=== PATIENT | female | born 1965 ===

== ENCOUNTER 2020-01-30 11:16 | Inpatient (IN) | payer BC ==
[2020-01-30] VITALS (298 sets, daily range): BP systolic 62–125; BP diastolic 30–71; PULSE 80–122; TEMP 34.8; O2SAT 92–100
[~2020-01-30] VITALS: Ht 170.2 cm; Wt 62.1 kg
[2020-01-30 11:54] LABS: HEMATOCRIT 31.5 % (37.0-47.0); MEAN CELL VOLUME 127 fl (80.0-100.0); MEAN CORPUSCULAR HEMOGLOBIN 32 pg (27.0-31.0); MEAN CORPUSCULAR HGB CONC 25 g/dl (33.0-37.0); PLATELET COUNT 715 K/mm3 (130-400); RED BLOOD COUNT 2.49 M/mm3 (4.10-5.30); REDCELL DISTRIBUTION WIDTH-CV 12.6 % (11.5-14.5)
[2020-01-30 12:02] LABS: ACETONE,SERUM MODERATE
[2020-01-30 12:05] LABS: ALANINE AMINOTRANSFERASE 34 U/L (4-34); ALBUMIN 3.3 gm/dL (3.5-5.0); ALKALINE PHOSPHATASE 211 U/L (50-136); AST,SGOT 35 U/L (15-37); BILIRUBIN,TOTAL 0.4 mg/dL (0.0-1.0); BLOOD UREA NITROGEN 59 mg/dL (7-17); CALCIUM 8.5 mg/dL (8.4-10.2); CREATININE, serum 3.66 (0.52-1.25); SODIUM 124 mmol/L (137-145)
[2020-01-30 12:07] LABS: ANION GAP 37 mmol/L (7-16)
[2020-01-30 12:17] LABS: CARBON DIOXIDE < 5 mmol/L (22-30); CHLORIDE 82 mmol/L (98-107); POTASSIUM 6.5 mmol/L (3.4-5.0)
[2020-01-30 12:28] LABS: GLUCOSE 1487 mg/dL (74-106)
[2020-01-30 12:31] LABS: ARTERIAL BLD GAS O2 SATURATION 97.9 % (92-100); ARTERIAL BLD GAS TCO2 CT 4.1; ARTERIAL BLOOD GAS BASE EXCESS -31.2 (-2-2); ARTERIAL BLOOD GAS HCO3 3.2 meq/L (22-26); ARTERIAL BLOOD GAS PCO2 26.1 mmHg (35-45)
[2020-01-30 12:32] LABS: ARTERIAL BLOOD GAS PO2 164.8 mmHg (80-100); ARTERIAL BLOOD GAS pH 6.71 (7.35-7.45)
[2020-01-30 13:25] LABS: BAND 3 % (0-10); LYMPHOCYTE 15 % (20.0-51.0); NEUTROPHILS 80 % (42.0-75.2); PLATELET ESTIMATE INCREASED (NORMAL)
--- NOTE | 2020-01-30 15:00 | NUR ---
Pt arrived to unit via stretcher from ED on Ventilator per RT. Propofol discontinued d/t hypotension and pt unresponsive. Seizure activity observed and 10mg of ativan given as well as Keppra and seizure activity stopped. Levophed titrated to maintain MAP >65. Insulin drip per protocol. Bath Steward consulted and declined central line insertion at this time. Mami hugger utilized to warm patient as well as fluid warmer. Head CT obtained. Urinalysis and DOA sent to lab.
[2020-01-30 15:01] LABS: ALCOHOL(ethanol),MEDICAL < 10 mg/dL
[2020-01-30 15:22] LABS: GLUCOSE 1305 mg/dL (74-106)
[2020-01-30 15:44] LABS: ARTERIAL BLD GAS O2 SATURATION 98.2 % (92-100); ARTERIAL BLD GAS TCO2 CT 5.1; ARTERIAL BLOOD GAS HCO3 4.6 meq/L (22-26)
[2020-01-30 15:45] LABS: ARTERIAL BLOOD GAS PCO2 19.3 mmHg (35-45); ARTERIAL BLOOD GAS pH 6.99 (7.35-7.45)
[2020-01-30 15:46] LABS: ARTERIAL BLOOD GAS PO2 146.4 mmHg (80-100)
[2020-01-30 15:47] LABS: IRON,SERUM 112 ug/dL (35-150)
[2020-01-30 15:56] LABS: TOTAL IRON BINDING CAPACITY 267 ug/dL (265-497)
[2020-01-30 16:07] LABS: MEAN CORPUSCULAR HGB CONC 28 g/dl (33.0-37.0); MEAN PLATELET VOLUME 11.3 fl (7.4-10.4); PLATELET COUNT 641 K/mm3 (130-400); RED BLOOD COUNT 2.62 M/mm3 (4.10-5.30); REDCELL DISTRIBUTION WIDTH-CV 12.6 % (11.5-14.5)
[2020-01-30 16:18] LABS: HEMATOCRIT 29.2 % (37.0-47.0); HEMOGLOBIN 8.1 g/dl (12.5-16.0); MEAN CELL VOLUME 112 fl (80.0-100.0); MEAN CORPUSCULAR HEMOGLOBIN 31 pg (27.0-31.0)
[2020-01-30 16:20] LABS: BLOOD UREA NITROGEN 55 mg/dL (7-17); CALCIUM 7.5 mg/dL (8.4-10.2); CHLORIDE 93 mmol/L (98-107); CREATININE, serum 2.86 (0.52-1.25); POTASSIUM 5.2 mmol/L (3.4-5.0); SODIUM 128 mmol/L (137-145)
[2020-01-30 16:28] LABS: GLUCOSE 1213 mg/dL (74-106)
[2020-01-30 17:25] LABS: BAND 3 % (0-10); LYMPHOCYTE 11 % (20.0-51.0); MYELOCYTE 2 % (0-0); NEUTROPHILS 86 % (42.0-75.2)
[2020-01-30 17:26] LABS: HYPOCHROMIA 3+; PLATELET ESTIMATE INCREASED (NORMAL)
[2020-01-30 17:56] LABS: ARTERIAL BLD GAS TCO2 CT 7.6; ARTERIAL BLOOD GAS BASE EXCESS -19.5 (-2-2)
[2020-01-30 17:57] LABS: ARTERIAL BLOOD GAS PCO2 19.2 mmHg (35-45); ARTERIAL BLOOD GAS pH 7.18 (7.35-7.45)
[2020-01-30 18:50] LABS: COLLECTION METHOD CATHETER
[2020-01-30 19:02] LABS: MUCOUS Present /lpf; PH 5 (5-8); SQUAMOUS EPITHELIAL 0-2 /hpf; URINE APPEARANCE Hazy; URINE BACTERIA None Seen /hpf; URINE BILIRUBIN Negative (NEGATIVE); URINE BLOOD 2+ (NEGATIVE); URINE COLOR Yellow; URINE GLUCOSE 3+ (NEGATIVE); URINE KETONE 1+ (NEGATIVE); URINE LEUKOCYTE ESTERASE Negative (NEGATIVE); URINE NITRATE Negative (NEGATIVE); URINE PROTEIN(semi-quant) 1+ (NEGATIVE); URINE UROBILINOGEN Negative (NEGATIVE)
[2020-01-30 19:04] LABS: TRICYCLIC ANTIDEPRESS URINE NEGATIVE
--- NOTE | 2020-01-30 19:21 | NUR ---
Pt has remained unresponsive throughout the shift. No further seizure activity observed. BP remained stable with levophed and fluids. Insulin drip protocol continues with lab to draw glucose. Pt has remained in sinus rhythm to sinus tach this evening. Dr. Yang in to see pt and rectal exam performed with no response from patient. Temperature back to normal and Mami Hugger discontinued. Pt continues on Vent per RT. No family contact available. Report to night RN.
[2020-01-30 20:29] LABS: CALCIUM 7.3 mg/dL (8.4-10.2); CREATININE, serum 2.47 (0.52-1.25); POTASSIUM 4.7 mmol/L (3.4-5.0)
[2020-01-31] VITALS (770 sets, daily range): BP systolic 113–139; BP diastolic 58–83; PULSE 83–105; TEMP 36; O2SAT 71–100
[2020-01-31 00:26] LABS: CALCIUM 7.6 mg/dL (8.4-10.2); CREATININE, serum 2.21 (0.52-1.25); POTASSIUM 4.2 mmol/L (3.4-5.0)
[2020-01-31 05:16] LABS: BASO % 0.3 % (0.0-2.0); EOS % 0.1 % (0-4.0); GRAN # 10.5 (1.4-6.5); LYMPH # 1.6 (1.2-3.4); LYMPH % 12.3 % (20.0-51.0); MEAN CORPUSCULAR HGB CONC 36 g/dl (33.0-37.0); MEAN PLATELET VOLUME 10.9 fl (7.4-10.4); MONO # 0.6 (0.1-0.6); MONO % 4.7 % (1.7-9.3); REDCELL DISTRIBUTION WIDTH-CV 12.2 % (11.5-14.5)
[2020-01-31 05:22] LABS: HEMOGLOBIN 7.9 g/dl (12.5-16.0); MEAN CORPUSCULAR HEMOGLOBIN 32 pg (27.0-31.0)
[2020-01-31 05:27] LABS: CALCIUM 7.5 mg/dL (8.4-10.2); CREATININE, serum 1.96 (0.52-1.25); MAGNESIUM 1.6 mg/dL (1.6-2.3); PHOSPHOROUS 2.7 mg/dL (2.5-4.5)
[2020-01-31 05:31] LABS: PLATELET COUNT 436 K/mm3 (130-400)
[2020-01-31 05:32] LABS: MEAN CELL VOLUME 88 fl (80.0-100.0)
[2020-01-31 05:55] LABS: ARTERIAL BLD GAS O2 SATURATION 98.5 % (92-100); ARTERIAL BLOOD GAS BASE EXCESS -0.6 (-2-2); ARTERIAL BLOOD GAS HCO3 21.2 meq/L (22-26); ARTERIAL BLOOD GAS PCO2 25.1 mmHg (35-45); ARTERIAL BLOOD GAS pH 7.55 (7.35-7.45)
[2020-01-31 05:56] LABS: ARTERIAL BLOOD GAS PO2 129.6 mmHg (80-100)
[2020-01-31 09:32] LABS: CALCIUM 7.3 mg/dL (8.4-10.2); CREATININE, serum 1.8 (0.52-1.25); POTASSIUM 3.3 mmol/L (3.4-5.0)
--- NOTE | 2020-01-31 10:45 | NUR ---
SEDATION OFF AT 0950 PER DOCTOR ROTHFLEISCH ORDER. PATIENT MADE NO EFFORT TO BREATHE OVER THE VENT. VS REMAINED WNL. PATIENT ONLLY WITHDREW FROM PAIN AFTER 45 MINUTES OF NO SEDATION. SEDATION RESUMED AT 1045
--- NOTE | 2020-01-31 11:51 | NUR ---
SW met with patient at her bedside to attempt intake assessment however patient could not tolerate interview. SW was present during provider rounds. Patient remains unresponsive. ANDREW did correspond with nurse who provided a POC Anabel [phone] as care suppor [facility] EMR. Patient is with no family here in the [place], her mother lives in [place] and does not speak guamanian. SW contacted [place] who reports that the patient lives alone, however has a roommate(college student) who had been living with her until the student returned home due to COVId crisis. Patient had recently been released from [facility] the previous , and had been cared for by a group of friends. Per POC patient had been independent of ADL's before her hospital stay and had been working at the [employer]. Patients PCM is Dr. Ulloa, and her OB is Dr. Holder. Patient gets her medications from [facility] with no complications. [place] informed this SW that she had provided EMS with a duffle bag that should have had patients discharge orders from her time at [facility], and she is attempting to locate medication. ANDREW informed nurse of duffle bag, and that I was going to attempt to contact [facility] to see what information they could provide. SW did contact [facility] main number and was transferred to Nicole, one of the charge nurses for the facility who transferred SW to [facility], where I was able to speak with Marisa. Marisa took down the fax number here and said she would fax what she could. ANDREW will forward information to patients nurse.
[2020-01-31] MEDS ORDERED: VIOKACE10 PO (11:55)
[2020-01-31] MEDS ORDERED: COREG 3.123.125 MG/T PO (11:56)
[2020-01-31] MEDS ORDERED: PRIL40 PO (11:56)
[2020-01-31] MEDS ORDERED: SODIUM BICARBO650 MG PO (11:57)
[2020-01-31] MEDS ORDERED: INSULIN AS100 UNIT/3 SQ (12:07)
[2020-01-31] MEDS ORDERED: LANTUS SOLOS100 U/ML SQ (12:08)
[2020-01-31] MEDS ORDERED: ASPIRIN 81M81 MG/TA2 PO (12:08)
[2020-01-31] MEDS ORDERED: FERROUSAL325 MG PO (12:09)
[2020-01-31] MEDS ORDERED: B-12 500 MCG PO (12:12)
[2020-01-31 13:50] LABS: CALCIUM 7.5 mg/dL (8.4-10.2); CREATININE, serum 1.75 (0.52-1.25); POTASSIUM 3.1 mmol/L (3.4-5.0)
[2020-01-31 15:52] LABS: PROCALCITONIN 9.52 ng/mL (0.00-0.09)
[2020-01-31 17:48] LABS: CALCIUM 7.6 mg/dL (8.4-10.2); CREATININE, serum 1.54 (0.52-1.25); POTASSIUM 3.5 mmol/L (3.4-5.0)
--- NOTE | 2020-01-31 18:33 | NUR ---
SEDATION VACAY INITIATED AT 1710. ALL FENTANYL, VERSED, VECURONIUM DECREASED IN HALF. PATIENT ABLE TO MOVE HEAD BUT DID NOT RESPOND TO VERBAL OR PAINFUL STIMULUS. SEDATION VACATION COMPLETED AT 1830. FENTANYL, VERSED AND VECURONIUM RATES CHANGED AND NOTED IN TITRATION DOCUMENTATION.
--- NOTE | 2020-01-31 19:05 | NUR ---
Bedside report received by Néstor. ETT, vent setting, OG placement and IV pump assessed at this time.
[2020-01-31 20:37] LABS: CALCIUM 7.8 mg/dL (8.4-10.2); CREATININE, serum 1.53 (0.52-1.25); POTASSIUM 3.8 mmol/L (3.4-5.0)
--- NOTE | 2020-01-31 21:00 | NUR ---
Pt assessment complete. Pt noted to open one eye to sound of name. Will squeeze left hand although not the right. With oral care a single tooth was noted to left upper jaw, as well as front set of bottom teeth intact. Tolerating the ventilator at this time.
--- NOTE | 2020-01-31 22:00 | NUR ---
Due to core temp being at 36.0, three warm blankets were placed on the patient underneath a bed sheet and brown top blanket. Room temperature was also raised in attempts to warm pt up.
--- NOTE | 2020-01-31 23:00 | NUR ---
Following IV gtts compatibility Insulin tubing moved from left AC to right AC peripheral IV's.
[2020-02-01] VITALS (858 sets, daily range): BP systolic 118–136; BP diastolic 72–86; PULSE 85–97; TEMP 36.4–36.7; O2SAT 92–100
[2020-02-01 00:43] LABS: CREATININE, serum 1.62 (0.52-1.25); POTASSIUM 3.4 mmol/L (3.4-5.0)
--- NOTE | 2020-02-01 03:00 | NUR ---
With linen change coccyx dressing changed. Stage 2 pressure ulcer noted with a small amount of drainage noted on dressing. Area pat with wet ph balanced wipe, allowed to dry before applying new Mepilex dressing in place. Surrounding open ulceration, red tissue is blanchable.
--- NOTE | 2020-02-01 04:00 | NUR ---
Ascultated lung sounds posteriorly when pt was turned for dressing change.
--- NOTE | 2020-02-01 04:00 | NUR ---
Pt temperature elevating slowly through out shift following nursing interventions.
--- NOTE | 2020-02-01 04:00 | NUR ---
PEG tube remains clamped at 11 through out entire shift.
[2020-02-01 04:38] LABS: BASO # 0.1 (0.0-0.2); BASO % 0.7 % (0.0-2.0); EOS # 0.2 (0.0-0.7); EOS % 1.6 % (0-4.0); GRAN # 8.7 (1.4-6.5); LYMPH # 2.6 (1.2-3.4); LYMPH % 21.3 % (20.0-51.0); MEAN CELL VOLUME 92 fl (80.0-100.0); MEAN CORPUSCULAR HGB CONC 36 g/dl (33.0-37.0); MEAN PLATELET VOLUME 10.7 fl (7.4-10.4); MONO # 0.6 (0.1-0.6); MONO % 4.9 % (1.7-9.3); PLATELET COUNT 404 K/mm3 (130-400); RED BLOOD COUNT 2.49 M/mm3 (4.10-5.30)
[2020-02-01 04:42] LABS: HEMATOCRIT 22.8 % (37.0-47.0); HEMOGLOBIN 8.2 g/dl (12.5-16.0); MEAN CORPUSCULAR HEMOGLOBIN 33 pg (27.0-31.0)
[2020-02-01 04:51] LABS: ALBUMIN 2.5 gm/dL (3.5-5.0); BILIRUBIN,TOTAL 0.2 mg/dL (0.0-1.0); CALCIUM 7.5 mg/dL (8.4-10.2); CREATININE, serum 1.42 (0.52-1.25); MAGNESIUM 1.6 mg/dL (1.6-2.3); PHOSPHOROUS 2.8 mg/dL (2.5-4.5); POTASSIUM 3.2 mmol/L (3.4-5.0); TOTAL PROTEIN 5.4 gm/dL (6.4-8.2)
[2020-02-01 05:22] LABS: ARTERIAL BLD GAS O2 SATURATION 98.5 % (92-100); ARTERIAL BLD GAS TCO2 CT 22.1; ARTERIAL BLOOD GAS BASE EXCESS -2.9 (-2-2); ARTERIAL BLOOD GAS HCO3 21.1 meq/L (22-26); ARTERIAL BLOOD GAS PCO2 33.3 mmHg (35-45); ARTERIAL BLOOD GAS pH 7.42 (7.35-7.45)
[2020-02-01 05:23] LABS: ARTERIAL BLOOD GAS PO2 133.6 mmHg (80-100)
--- NOTE | 2020-02-01 06:30 | NUR ---
Propofol decreased to half (25 mcg/kg/min) following call from RT that staff member was on their way to the unit to completed EEG. Request made to decrease sedation. Upon assessment of the pt, gtt adjustment was able to be completed. Sedation vacation was not completed this shift. Pt was off Propofol for approximately 30 minutes at an earlier time, with in the shift (around 0030) due to a blood draw. Pt was able to follow command of squeezing right hand and open eyes, with tracking noted. At that time CAM assessment was reassessed. Pt was restless with increased movement of upper and lower extremities. Upper extremities, pt was noted to lift arms off the bed, lower extremities pt moved on the bed. Pt was able to squeeze hand to one letter A although did not repeat with the other mention of the letter A's after instruction to do so every time it was said. Due to the increase in restlessness Propofol was turned back on.
--- NOTE | 2020-02-01 07:20 | NUR ---
Report provided to Néstor. EEG in progress in pt room at this time.
--- NOTE | 2020-02-01 07:31 | NUR ---
Received bedside report from AMANDA Alvarez. All medications verified and questions answered. Patient intubated and sedated. VS WNL. Will continue to monitor.
[2020-02-01 08:27] LABS: PATHOLOGY DIFF REVIEW OK
--- NOTE | 2020-02-01 11:23 | NUR ---
Patient Care Assistant was able to stand outside of door and pray for patient.
--- NOTE | 2020-02-01 11:32 | NUR ---
PATIENT STARTED ON SEDATION VACATION AT 0815. PROPOFOL MEDICATION PUT ON STANDBY. PATIENT APPEARED TO BE MORE ALERT AND WAS ABLE TO FOLLOW SIMPLE COMMANDS. PATIENT ABLE TO MUSIC INTERN HANDS, OPEN AND TRACK WITH EYES. PATIENT BEGAN TO GET RESTLESS AT 1120 AND PROPOFOL WAS TURNED BACK ON TO 25MCG/KG/MIN AT 10.5MLS/HR. SEDATION VACATION COMPLETED AND PATIENT PUT BACK ON AC/VC VENT MODE SETTING. VS REMAINED WNL THROUGHOUT SEDATION VACATION. WILL CONTINUE TO MONITOR.
--- NOTE | 2020-02-01 16:42 | NUR ---
ANDREW received a phone call from the patient's friend, Anabel (ph#[phone]). Anabel states that she has been looking out for the patient. She asked about a Financial DPOA and being able to pay the patient's bills. ANDREW informed her how we would not be able to do one here and how the patient is not alert and oriented at this time. Anabel verbalized understanding. Anabel is unsure if the patient has a DPOA-HC. She states that the patient is not and that she has no children. Anabel states that the patient's mother is alive and that she lives in [place] and speaks Dominican. Anabel states that she will get the mother's phone number and call ICU geriatric social worker, Tonie, tomorrow with it.
[2020-02-02] VITALS (357 sets, daily range): BP systolic 104–140; BP diastolic 67–84; PULSE 78–91; TEMP 97–98.2; O2SAT 55–100
--- NOTE | 2020-02-02 03:00 | NUR ---
TUBE FEEDINGS ON HOLD FOR POSSIBLE EXTUBATION THIS MORNING.
[2020-02-02 04:48] LABS: BASO # 0.1 (0.0-0.2); EOS # 0.2 (0.0-0.7); EOS % 1.8 % (0-4.0); GRAN # 5.6 (1.4-6.5); GRAN % 68.6 % (42.2-75.2); LYMPH # 1.8 (1.2-3.4); LYMPH % 21.8 % (20.0-51.0); MEAN CELL VOLUME 94 fl (80.0-100.0); MEAN CORPUSCULAR HGB CONC 34 g/dl (33.0-37.0); MEAN PLATELET VOLUME 10.8 fl (7.4-10.4); MONO # 0.5 (0.1-0.6); MONO % 6.2 % (1.7-9.3); PLATELET COUNT 355 K/mm3 (130-400); RED BLOOD COUNT 2.49 M/mm3 (4.10-5.30); REDCELL DISTRIBUTION WIDTH-CV 14.6 % (11.5-14.5)
[2020-02-02 04:53] LABS: HEMATOCRIT 23.3 % (37.0-47.0); HEMOGLOBIN 7.9 g/dl (12.5-16.0); MEAN CORPUSCULAR HEMOGLOBIN 32 pg (27.0-31.0)
[2020-02-02 05:01] LABS: ALBUMIN 2.4 gm/dL (3.5-5.0); BILIRUBIN,TOTAL 0.6 mg/dL (0.0-1.0); CALCIUM 7.8 mg/dL (8.4-10.2); CREATININE, serum 1.13 (0.52-1.25); MAGNESIUM 1.6 mg/dL (1.6-2.3); PHOSPHOROUS 2.5 mg/dL (2.5-4.5); POTASSIUM 4.3 mmol/L (3.4-5.0); TOTAL PROTEIN 5.3 gm/dL (6.4-8.2)
--- NOTE | 2020-02-02 05:44 | NUR ---
0500: SEDATION VACTION PERFOMRED WITH PROPOFOL DECREASED FROM 30MCG/KG/MIN TO 10MCG/KG/MIN, PT BECAME RESTLESS AND TRYING TO PULL AT TUBE AND PUTTING LEGS OVER THE SIDE OF HER BED. 0544: RATE BACK TO 25MCG/KG/MIN, PT RESTING WITH EYES SHUT.
[2020-02-02 05:54] LABS: ARTERIAL BLD GAS TCO2 CT 22.9; ARTERIAL BLOOD GAS BASE EXCESS -2.6 (-2-2); ARTERIAL BLOOD GAS HCO3 21.7 meq/L (22-26); ARTERIAL BLOOD GAS PCO2 36.4 mmHg (35-45); ARTERIAL BLOOD GAS PO2 83.3 mmHg (80-100); ARTERIAL BLOOD GAS pH 7.39 (7.35-7.45)
--- NOTE | 2020-02-02 08:50 | NUR ---
PT SELF EXTUBATED. ON ROOM AIR. DR. LUZ IN THE ROOM
--- NOTE | 2020-02-02 11:17 | NUR ---
Last Dipper was contacted by patient's friend, Allyn (home#[phone],cell#[phone]) who lives in [place], [place]. Allyn advised she speaks Andorran and has been keeping patient's mother, Stefanie Melendez updated on patient. Allyn states Stefanie's phone number is [phone] and her email is [email or web address]. Allyn advised that when patient was at [facility], they discussed patient designating DPOA-HC however decided not to do this as patient started to get better. SW discussed DPOA-HC with Allyn and advised that SW will follow up with patient about designating DPOA-HC during this stay. Allyn reports in the past, patient has discussed designating either Allyn or Allyn's son. SW will continue to follow.
[2020-02-02 11:37] LABS: ARTERIAL BLD GAS O2 SATURATION 95.4 % (92-100); ARTERIAL BLD GAS TCO2 CT 21.6; ARTERIAL BLOOD GAS BASE EXCESS -3.2 (-2-2); ARTERIAL BLOOD GAS HCO3 20.6 meq/L (22-26); ARTERIAL BLOOD GAS PCO2 32.1 mmHg (35-45); ARTERIAL BLOOD GAS PO2 76.4 mmHg (80-100); ARTERIAL BLOOD GAS pH 7.43 (7.35-7.45)
--- NOTE | 2020-02-02 12:45 | NUR ---
PICC intact right upper arm with sterile dressing change done with insertion site cleansed with chloraprep x 1, chlorhexidine impregnated disk applied, skin prep, stat lock, and tegaderm applied. no signs or symptoms of IV complications noted. no concerns voiced. re-wrapped with an mary jane to protect catheter.
--- NOTE | 2020-02-02 13:36 | NUR ---
Tax Audit Manager contacted [facility] and spoke with the [employer] of Information department. ANDREW was faxed over a copy of patient's DPOA-HC which designates her mother, Stefanie as primary and her friend, Rocío Cook (ph#[phone]). ANDREW attempted to contact Stefanie but was unable to make an international call. ANDREW contacted Rocío who advised she recently found out patient designated her as DPOA-HC and she was not aware patient was going to do this. Rocío states he is willing to fill this role for patient. Rocío states she does not have contact with Stefanie as she does not speak Ugandan, but that patient's friend, Allyn keeps Stefanie updated. Rocío advised she is patient's next door neighbor and has a spare smith to her apartment. ANDREW contacted Allyn and updated her that DPOA-HC paperwork was found. Allyn expressed relief and advised she would work with Rocío to make sure Stefanie is kept updated. ANDREW placed DPOA-HC documents on patient's chart and collaborated with AMANDA.
--- NOTE | 2020-02-02 14:34 | NUR ---
Bookkeeping Clerk received another phone call from ALISA Alford who advised last time patient was here, there was concern she was maybe released too soon. Rocío advised their friend, Atoka picked up patient and reported that patient was not quite herself. Rocío would like the Hospitalist to call when patient is ready for discharge to review any instructions or recommendations. Rocío states the person caring for patient's animals has a friend that may be willing to stay with patient for a few days to provide additional support as needed. Rocío states she herself is basically homebound to COPD. SW will continue to follow.
--- NOTE | 2020-02-02 14:59 | NUR ---
PT transferred to room 354 via wheelchair. PT moved to medical bed without incident. AMANDA Gant assuming care at this time.
--- NOTE | 2020-02-02 16:03 | NUR ---
PATIENT RESTING IN BED. CLAY CATHETER DRAINING CLEAR PALE YELLOW URINE TO CLAY BAG. CALL LIGHT IN REACH. PATIENT REPORTS THAT HER THROAT IS SORE, BUT OTHERWISE DENIES PAIN AT THIS TIME.
--- NOTE | 2020-02-02 19:06 | NUR ---
PATIENT REPORT GIVEN TO AMANDA VILLEGAS.
--- NOTE | 2020-02-02 22:00 | NUR ---
Pt assessment completed and documented. Pt resting in bed at this time watching TV. Pt alert and oriented x4. ROSETTE Chowdary notified that tube feedings have not been running on pt since arriving to floor from ICU. Active order for tube feeds. Order to restart tube feed at lowest rate ordered and increase per orders. Tube feeding resumed at this time at 20ml/hr with 30 ml flush q4hr. G tube CDI. PICC to RUE CDI. Lopez to dependent drainage with clear, yellow urine. Denies pain. Pt has been asking for water frequently. Explainted to pt she is NPO. Pt verbalized understanding. Pt denies any needs/concerns. Call light within reach. Bed alarm on. Will continue to monitor.
[2020-02-03 03:14] VITALS: BP 124/64; PULSE 89; TEMP 98.4
--- NOTE | 2020-02-03 06:00 | NUR ---
Pt rested intermittently overnight. Pt asked multiple times overnight when she can have water. Explained to pt that she is NPO and cannot have anything to drink. Pt very frustrated by this. PEG checked for residual at this time with 0mls residual. Tube feeding advanced at this time per orders to 35 ml/hr. PICC to RUE CDI. No complaints of pain overnight. Call light within reach. Bed alarm on.
[2020-02-03 06:29] LABS: BASO # 0.1 (0.0-0.2); BASO % 0.9 % (0.0-2.0); EOS # 0.2 (0.0-0.7); EOS % 2.2 % (0-4.0); GRAN # 5.1 (1.4-6.5); GRAN % 64.5 % (42.2-75.2); LYMPH # 1.9 (1.2-3.4); LYMPH % 24.7 % (20.0-51.0); MEAN CELL VOLUME 98 fl (80.0-100.0); MEAN CORPUSCULAR HGB CONC 33 g/dl (33.0-37.0); MONO # 0.5 (0.1-0.6); MONO % 6.9 % (1.7-9.3); PLATELET COUNT 375 K/mm3 (130-400); RED BLOOD COUNT 2.36 M/mm3 (4.10-5.30); REDCELL DISTRIBUTION WIDTH-CV 14.8 % (11.5-14.5)
[2020-02-03 06:33] LABS: ALBUMIN 2.5 gm/dL (3.5-5.0); BILIRUBIN,TOTAL 0.3 mg/dL (0.0-1.0); CALCIUM 8.1 mg/dL (8.4-10.2); CREATININE, serum 1.13 (0.52-1.25); POTASSIUM 3.7 mmol/L (3.4-5.0); TOTAL PROTEIN 5.3 gm/dL (6.4-8.2)
[2020-02-03 06:37] LABS: HEMOGLOBIN 7.5 g/dl (12.5-16.0); MEAN CORPUSCULAR HEMOGLOBIN 32 pg (27.0-31.0)
--- NOTE | 2020-02-03 06:45 | NUR ---
resting in bed, bedside shift report received from AMANDA Ceron
[2020-02-03 07:19] VITALS: BP 101/79; PULSE 80; TEMP 98.4
--- NOTE | 2020-02-03 08:00 | NUR ---
dozing off and on, awakened and full assessment completed, see interventions for further info, is alert and oriented and only c/o of being very thirsty, PEG tube feeding continues,
--- NOTE | 2020-02-03 10:33 | NUR ---
to radiology with speech therapy for modified barium swallow
--- NOTE | 2020-02-03 11:30 | NUR ---
returned per WC from swallow study, assisted into bathroom, physical therapy in and will work with patient when finished in bathroom
[2020-02-03 11:57] VITALS: BP 155/81; PULSE 78; TEMP 98.1
--- NOTE | 2020-02-03 13:44 | NUR ---
resting in bed having ice chips and tolerates well with out chocking, awaiting a lunch tray
--- NOTE | 2020-02-03 14:12 | NUR ---
sitting up in bed eating pureed lunch and is tolerating well
--- NOTE | 2020-02-03 14:47 | NUR ---
has eaten more than 50% so no tube feeding needed
[2020-02-03 15:28] VITALS: BP 137/65; PULSE 85; TEMP 98.1
--- NOTE | 2020-02-03 16:45 | NUR ---
assisted into shwoer per her request, ROD PULLER AND COILER came to the door and asked for someone to come and help her, patient sitting on the floor with feet in front of her, ROD PULLER AND COILER stated her feet started to slip out fromunder her and she was not able to stay up and she assisted her to the floor, patient denies hitting her head or any injuty to limbs, assisted patient up and onto bed, moves all extremities without c/os, cocyx with bright red area on left buttock and pressure ulcer in middle of cocyx, pink mepiplex placed, assisted back into bed, denies pain or needs
--- NOTE | 2020-02-03 19:04 | NUR ---
bedside shift report given to AMANDA Nguyen
[2020-02-03 20:35] VITALS: BP 140/73; PULSE 86; TEMP 97.2
--- NOTE | 2020-02-03 20:45 | NUR ---
Patient assessed at this time. Alert and oriented x 4, and able to make needs known. Denies having pain and discomfort at this time. Peripheral INT to left AC. Site is without redness, warmth, swelling, and pain. Double lumen PICC to RUE. Dressing to area CDI. Site without redness, warmth, swelling, and pain. Denies having SOB and dyspnea. LS CTA in upper lobes, diminished in lower. Respirations even and unlabored. HRR. Telemetry in place. Capillary refill less than 3 seconds. Non-tenting skin turgor. BSAx4. Tube feeding patent. No residual. Reported that she ate more than 50% of supper, so not given any feedings after supper. Patient did get 1 can for 2 chandrika HN per orders at HS. Tolerated well. Flushed with 30 ml water before and after bolus feeding. Did take medication whole with thickened liquids. Indwelling renteria catheter is patent, and draining clear yellow urine via dependent drainage. No edema. Voices no questions, needs, or concerns at this time. Resting in bed with call light within reach. High fall risk precautions in place.
[2020-02-04] VITALS (7 sets, daily range): BP systolic 138–160; BP diastolic 67–88; PULSE 79–93; TEMP 97.6–98.5
--- NOTE | 2020-02-04 05:10 | NUR ---
Patient has been resting in bed with call light within reach. Denies pain and discomfort. Encouraged repositioning due to sore on bottom. Indwelling renteria catheter in place. Voices no questions, needs, or concerns at this time.
[2020-02-04 07:53] LABS: MEAN CELL VOLUME 98 fl (80.0-100.0); MEAN CORPUSCULAR HGB CONC 32 g/dl (33.0-37.0); MEAN PLATELET VOLUME 10.5 fl (7.4-10.4); PLATELET COUNT 391 K/mm3 (130-400); RED BLOOD COUNT 2.39 M/mm3 (4.10-5.30); REDCELL DISTRIBUTION WIDTH-CV 14.2 % (11.5-14.5)
[2020-02-04 07:58] LABS: HEMATOCRIT 23.5 % (37.0-47.0); HEMOGLOBIN 7.5 g/dl (12.5-16.0); MEAN CORPUSCULAR HEMOGLOBIN 31 pg (27.0-31.0)
[2020-02-04 08:03] LABS: ALBUMIN 2.7 gm/dL (3.5-5.0); BILIRUBIN,TOTAL 0.3 mg/dL (0.0-1.0); CALCIUM 8.1 mg/dL (8.4-10.2); CREATININE, serum 1.01 (0.52-1.25); POTASSIUM 3.8 mmol/L (3.4-5.0); TOTAL PROTEIN 5.7 gm/dL (6.4-8.2)
[2020-02-04 08:58] LABS: BAND 2 % (0-10); EOSINOPHIL 1 % (0-4); HYPOCHROMIA 2+; LYMPHOCYTE 27 % (20.0-51.0); NEUTROPHILS 65 % (42.0-75.2); PLATELET ESTIMATE NORMAL (NORMAL)
--- NOTE | 2020-02-04 09:10 | NUR ---
Pt laying in bed, denies needs at this time. Pt ate breakfast 100%. VSS, pt is a standby assistance. Will contact Social Work to discuss plan of care. no further concerns.
--- NOTE | 2020-02-04 11:34 | NUR ---
CLAY REMOVED BY STUDENT NURSE, LOWELL. PT TOLERATED REMOVAL WITH NO PROBLEMS. PT IS AMBULATING TO THE BATHROOM WITH ASSISTANCE.
--- NOTE | 2020-02-04 11:43 | NUR ---
PT AMBULATED TO THE BATHROOM, WAS ABLE TO URINATE 200ML POST CATHETER REMOVAL.
--- NOTE | 2020-02-04 19:36 | NUR ---
Pt assessment completed and documented. Pt resting in bed at this time watching TV. Alert and oriented x4. Denies pain. PICC to RUE CDI. Pt able to eat 90% of dinner. PEG tube intact. Pt denies any needs/concerns. Call light within reach. Bed alarm on. Will continue to monitor.
[2020-02-05 03:28] VITALS: BP 135/66; PULSE 90; TEMP 98.3
--- NOTE | 2020-02-05 05:07 | NUR ---
Pt had uneventful night. Rested well and denied pain overnight. Currently awake in bed. Refused HS TF last night due to eating almost all of her dinner stating she did not want to feel sick all night like she did the night before. PEG intact. PICC to RUE CDI. Pt denies any needs/concerns. Call light within reach. Bed alarm on.
[2020-02-05 06:25] LABS: ALBUMIN 2.6 gm/dL (3.5-5.0); BILIRUBIN,TOTAL 0.2 mg/dL (0.0-1.0); CALCIUM 8.1 mg/dL (8.4-10.2); CREATININE, serum 0.95 (0.52-1.25); POTASSIUM 3.5 mmol/L (3.4-5.0); TOTAL PROTEIN 5.6 gm/dL (6.4-8.2)
--- NOTE | 2020-02-05 07:03 | NUR ---
Report given to AMANDA Caputo
[2020-02-05 07:31] VITALS: BP 137/64; PULSE 91; TEMP 98.6
--- NOTE | 2020-02-05 07:34 | NUR ---
REPORT RCVD FROM AMANDA SALGADO. PT IS SLEEPING IN BED AT THIS TIME. PT REFUSED BEDTIME TUBE FEED PER REPORT. PT BLOOD GLUCOSE WAS STABLE THIS AM AT 85. WILL CONTINUE TO MONITOR. NO FURTHER CONCERNS AT THIS TIME.
[2020-02-05 12:35] VITALS: BP 133/78; PULSE 91; TEMP 97.9
--- NOTE | 2020-02-05 16:35 | NUR ---
The hospitalist notified ANDREW that the patient is going to need post-acute rehab upon discharge. The patient's insurance is [email or web address] and she may not have skilled benefits. ANDREW informed the hospitalist of this. ANDREW consulted IPR Director, Prema. ANDREW faxed referrals to [facility] and [facility]. Awaiting screens.
[2020-02-05 16:41] VITALS: BP 153/78; PULSE 87; TEMP 98.6
--- NOTE | 2020-02-05 19:20 | NUR ---
Patient assessed at this time. Alert and oriented x 4, and able to make needs known. Does not always wait for assistance. High fall risk precautions in place, including bed alarm. Denies having pain and discomfort at this time. Peripheral INT to left AC flushed. Site without redness, warmth, swelling, and pain. Double lumen PICC to RUE. Denies SOB and dyspnea. LS faint crackles in upper lobes, clear in lower. Respirations even and unlabored. HRR. Tele in place. Capillary refill less than 3 seconds. Non-tenting skin turgor. Peg tube at 4 cm samreen. Drain sponge to site changed. Had dark yellow drainage on old sponge. Skin slighly pink to PEG site. Cleansed with NS and new drain sponge applied to site. BSAx4. Abdomen soft and non-tender. Denies pain, burning, and discomfort with urination. Urine clear and yellow. Dressing to ulcer on coccyx is CDI. No edema. Voices no questions, needs, or concerns at this time. Resting in bed with call light within reach.
[2020-02-05 19:42] VITALS: BP 141/72; PULSE 99; TEMP 98.8
[2020-02-06 00:19] VITALS: BP 152/81; PULSE 92; TEMP 98.6
[2020-02-06 04:03] VITALS: BP 161/72; PULSE 103; TEMP 97
--- NOTE | 2020-02-06 06:18 | NUR ---
Patient has denied having pain and discomfort this shift. Received sliding scale insulin aroud midnight per orders with snack. Blood sugar this morning was 53. Given snack and juice. Rechecked with a result of 103. Voices no questions, needs, or concerns at this time. Resting in bed with call light within reach.
[2020-02-06 08:00] VITALS: BP 179/92; PULSE 84; TEMP 98.3
--- NOTE | 2020-02-06 08:00 | NUR ---
Patient in bed resting. Alert and oriented x 3. Assessment complete. patient up to restroom with stand by assist and steady gait. Denies pain at this time. Picc line to SHANIA without complications, INT to left AC. Denies further needs at this time. States she would like to take a shower later today but will let staff know when she is ready to shower.
[2020-02-06 11:47] VITALS: BP 148/97; PULSE 84; TEMP 98.3
[2020-02-06 16:18] VITALS: BP 165/81; PULSE 81; TEMP 98.6
--- NOTE | 2020-02-06 19:06 | NUR ---
Patient has done well throughout the day, minimal needs. Has been up ambulating in room, steady gait. Denies further needs at this time. Reported off to overnight babysitter.
--- NOTE | 2020-02-06 19:30 | NUR ---
Patient assessed at this time. Alert and oriented x 4, and able to make needs known. Denies having pain and discomfort at this time. Peripheral INT to left AC. PICC to RUE. Denies SOB and dypsnea. LS CTA. Respirations even and unlabored. HRR. Capillary refill less than 3 seconds. Non-tenting skin turgor. BSAx4. Abdomen soft and non-tender. PEG tube at 4 cm samreen. No edema. Voices no questions, needs, or concerns at this time. Resting in bed with call light within reach.
[2020-02-06 21:21] VITALS: BP 160/70; PULSE 83; TEMP 98.4
[2020-02-07] VITALS (7 sets, daily range): BP systolic 139–154; BP diastolic 73–85; PULSE 73–92; TEMP 98–98.7
--- NOTE | 2020-02-07 07:12 | NUR ---
Patient has been resting in bed with call light within reach. Voices no questions, needs, or concerns at this time. Has denied having pain and discomfort this shift.
--- NOTE | 2020-02-07 07:56 | NUR ---
shift report received. pt resting in bed with eyes closed. call light within reach. no s/s distress
[2020-02-07 08:26] LABS: CALCIUM 8.3 mg/dL (8.4-10.2); CREATININE, serum 0.8 (0.52-1.25); POTASSIUM 3.8 mmol/L (3.4-5.0)
--- NOTE | 2020-02-07 10:06 | NUR ---
morning meds given. pt steady up ad jaspreet. denies pain. requested ice tea. lungs clear. some coughing noted with drinks. wants pills whole with ice tea. dressing to PEG tube changed
--- NOTE | 2020-02-07 12:44 | NUR ---
spout worker spoke with Dr Giron and Trisha with Inpatient Rehab. Lynette will submit to [employer] for insurance coverage and will plan to accept.
--- NOTE | 2020-02-07 22:00 | NUR ---
Pt assessment completed and documented. Pt alert and oriented x4. Currently resting in bed watching TV. Denies pain. PICC to RUE CDI. INT to left AC CDI. Sacral dressing to ulcer intact. Pt denies any needs at this time. Call light within reach. Will continue to monitor
[2020-02-08 04:00] VITALS: BP 132/76; PULSE 74; TEMP 97.9
[2020-02-08 07:02] LABS: ALBUMIN 3.1 gm/dL (3.5-5.0); BILIRUBIN,TOTAL 0.3 mg/dL (0.0-1.0); CALCIUM 8.6 mg/dL (8.4-10.2); CREATININE, serum 0.9 (0.52-1.25); MAGNESIUM 1.5 mg/dL (1.6-2.3); PHOSPHOROUS 4.2 mg/dL (2.5-4.5); POTASSIUM 3.5 mmol/L (3.4-5.0); TOTAL PROTEIN 6.3 gm/dL (6.4-8.2)
[2020-02-08 07:09] LABS: PRE ALBUMIN 22.8 mg/dL (17.6-36.0)
--- NOTE | 2020-02-08 07:27 | NUR ---
Pt had uneventful night. Rested well in bed overnight. No complaints of pain. AM BG 51. Luce juice given per pt request. Recheck BG 72. Pt requested more orange juice and stated she would be ok until breakfast arrvies because she plans to eat all of her breakfast. PICC to CON BACA. Currently resting in bed watching TV. Call light within reach. Report given to AMANDA Beckwith
--- NOTE | 2020-02-08 07:36 | NUR ---
BEDSIDE SHIFT REPORT RECEVIED. PT RESTING IN BED, WARM BLANKET PROVIDED AND ROOM TEMP INCREASED PER PT REQUEST. NO OTHER NEEDS AT THIS TIME.
[2020-02-08 08:15] VITALS: BP 140/67; PULSE 90; TEMP 98.3
--- NOTE | 2020-02-08 10:09 | NUR ---
Sacral dressing re-applied this shift. pt had removed it overnight. wound base across coccyx with hard yellow dry base and deep red discolouration to surrounding butt area. no drainage. pt denies pain to site. showered today.
[2020-02-08 12:30] VITALS: BP 138/66; PULSE 89; TEMP 98.3
[2020-02-08] MEDS ORDERED: KEPPRA 500MG500 MG PO (14:24)
[2020-02-08] MEDS ORDERED: NOVOLOG FLEX100 U/ML SQ (14:25)
[2020-02-08] MEDS ORDERED: LEVEMIR FLEX100 U/ML SQ (14:26)
[2020-02-08] MEDS ORDERED: NOVOLOG 100U100 U/M1 SQ (14:30)
--- NOTE | 2020-02-08 16:00 | NUR ---
Prema obtained insurance authorization and patient will discharge to [facility] today.
[2020-02-08 16:35] VITALS: BP 142/73; PULSE 89; TEMP 98.2
--- NOTE | 2020-02-08 17:54 | NUR ---
PT TRANSFERED TO IPR @ 7735. EVENING MEDS GIVEN. ALL BELONGINGS SENT WITH. NO NEW CONCERNS
--- NOTE | 2020-02-08 19:13 | NUR ---
PT TRANSFERRED BY MEDICAL NURSE VIA WC TO ROOM 338 AROUND 1730. PT WAS TRANSFERRED INTO BED AND MADE COMFORTABLE AND ORIENTED TO THE UNIT.
== END 2020-02-08 17:28 | DRG 871 ==
LOC: COL.ER 11:16 → ICU 12:19 → MEDICAL 12:19 → ICU 02-02 15:07 → MEDICAL 02-02 15:07 → ICU 02-08 17:28 → MEDICAL 02-08 17:45
PROVIDERS: Emergency Medicine; Hospitalist; Internal Medicine; Internal Medicine Pulmonary Disease; Physician Assistant; Surgery; ADMIT Family Medicine
PROC: 0BH17EZ Insertion of Endotracheal Airway into Trachea, Via Natural or Artificial Opening (ICD-10-PCS; principal; 2020-01-30)
PROC: 5A1945Z Respiratory Ventilation, 24-96 Consecutive Hours (ICD-10-PCS; 2020-01-30)
PROC: 02HV33Z Insertion of Infusion Device into Superior Vena Cava, Percutaneous Approach (ICD-10-PCS; 2020-02-01)
DX: A41.9 Sepsis, unspecified organism (principal); E11.10 Type 2 diabetes mellitus with ketoacidosis without coma; R65.21 Severe sepsis with septic shock; G92 Toxic encephalopathy; N17.9 Acute kidney failure, unspecified; I67.82 Cerebral ischemia; Z20.828 Contact with and (suspected) exposure to other viral communicable diseases; R25.3 Fasciculation; D53.9 Nutritional anemia, unspecified; R94.31 Abnormal electrocardiogram [ECG] [EKG]; E11.22 Type 2 diabetes mellitus with diabetic chronic kidney disease; I12.9 Hypertensive chronic kidney disease with stage 1 through stage 4 chronic kidney disease, or unspecified chronic kidney disease; N18.9 Chronic kidney disease, unspecified; R68.0 Hypothermia, not associated with low environmental temperature; E87.5 Hyperkalemia; F17.210 Nicotine dependence, cigarettes, uncomplicated; E87.6 Hypokalemia; Z93.1 Gastrostomy status
CPT/HCPCS: 99223-AI; 99232-AI; 99233-AI; 99239; C1751; C9113; J0330; J0692; J0696; J1650; J1815; J1953; J2060; J2704; J3370; J3475; J3480; J7030; J7050; J7060

== ENCOUNTER 2020-02-08 15:20 | Inpatient (IN) | payer BC ==
[~2020-02-08] VITALS: Wt 58.7 kg
[~2020-02-08 15:20] MED LIST: ASPIRIN 81M81 MG/TA2 PO; B-12 500 MCG PO; COREG 3.123.125 MG/T PO; FERROUSAL325 MG PO; INSULIN AS100 UNIT/3 SQ; KEPPRA 500MG500 MG PO; LANTUS SOLOS100 U/ML SQ; LEVEMIR FLEX100 U/ML SQ; NOVOLOG 100U100 U/M1 SQ; NOVOLOG FLEX100 U/ML SQ; PRIL40 PO; SODIUM BICARBO650 MG PO; VIOKACE10 PO
--- NOTE | 2020-02-08 20:00 | NUR ---
Patient in bed resting. Alert and oriented x 3. Assessment complete. Denies pain at this time. Stage III ulcer to coccyx noted, mepilex in place. Peg tube noted. Patient up to restroom with steady gait. PICC line to SHANIA without complicaitons. Denies further needs at this time.
[2020-02-08 22:24] VITALS: BP 138/72; PULSE 101; TEMP 98.3
--- NOTE | 2020-02-08 22:45 | NUR ---
Snack provided with insulin administration.
--- NOTE | 2020-02-09 01:20 | NUR ---
Patient BS at 362, notified Nneka HUTTON, insulin given per sliding scale, changed accuchecks and insulin to q4hrs.
[2020-02-09 05:48] VITALS: BP 129/59; PULSE 86; TEMP 98
--- NOTE | 2020-02-09 07:02 | NUR ---
BS at 40, asymptomatic, orange juice offered. BS recheck to 76. Denies further needs at this time. Reported off to archaeologist.
--- NOTE | 2020-02-09 12:30 | NUR ---
PICC intacct right upper arm with sterile dressing change done with insertion site cleansed with chloraprep x 1, chlorhexidine impregnated disk applied, skin prep, stat lock, and tegaderm applied. no signs or symptoms of IV complications noted. no concerns voiced. re-wrapped with an mary jane to protect catheter.
--- NOTE | 2020-02-09 14:40 | NUR ---
ANDREW met with the patient to discuss discharge plan. The patient lives alone in [place] and works at [employer]. She states that she has great friend support in [employer]. She reports independence with ADLs and does not have any DME. The patient's PCP is Dr. Suzanne Ulloa and she receives her medications from [facility]. She reports that she may have difficulties affording her meds upon discharge. She states that her insulin gets expensive. The patient's DPOA-HC was faxed here from [facility] during her acute stay. Her DPOA-HC is her friend, Rocío Cook (ph#[phone]). The patient states that she is thinking about changing her DPOA-HC to her other friend, Allyn, but she was not interested in completing a new DPOA-HC at this time. The patient states that [employer] emailed [facility] paperwork to her. ANDREW provided her with the IPR Director's email address to forward the [facility] paperwork to. ANDREW notified IPR Director of this. ANDREW to continue to follow.
[2020-02-09 18:04] VITALS: BP 152/64; PULSE 107; TEMP 98.2
--- NOTE | 2020-02-09 21:30 | NUR ---
Resting in bed. Assessment complete. Lungs clear. Heart sounds normal. Bowels active x4. Pulses present throughout. No edema noted. PICC to right upper flushed without complications. PEG tube without visible complications. Denies pain. Denies needs at this time. Call light in reach.
--- NOTE | 2020-02-10 01:28 | NUR ---
Resting in bed. Denies needs. Call light in reach.
--- NOTE | 2020-02-10 03:50 | NUR ---
Resting in bed. Denies needs. Call light in reach.
--- NOTE | 2020-02-10 05:43 | NUR ---
Patient had uneventful night. Resting in bed this Am. Call light in reach.
[2020-02-10 06:02] VITALS: BP 141/85; PULSE 104; TEMP 98.2
--- NOTE | 2020-02-10 07:18 | NUR ---
Report given to AMANDA Collado
--- NOTE | 2020-02-10 15:50 | NUR ---
ANDREW met with the patient to present and review the IPR Team Conference note. ANDREW discussed the patient's progress and the team's recommendation for a discharge this Saturday, 02/11, with outpatient ST. The patient was in agreement to the plan and to receive the outpatient ST at [facility] on . ANDREW contacted [facility] on and secured the patient an outpatient ST appointment on 02/24 at 1000. ANDREW notified the patient's RN of appointment. ANDREW will need to fax the patient's d/c orders to [facility] on . Stopper Setter, Virgen, notified ANDREW that the patient is having concerns about affording her insulin and that her glucometer does not work. ANDREW contacted Magy, religion instructor, at the patient's PCP's office. Magy reports that they do not have any glucometers that they can give to the patient. She recommended that the patient apply for prescription assistance through [employer] which provides assistance for Novolog and Levemir. She states that the patient can then return the completed application to them and they will send it off to the program. She states that if the patient qualifies for the program, they will provide a free 90-day supply to the patient. ANDREW provided the application to the patient and explained the above information to her. The patient verbalized understanding. ANDREW contacted the patient's preferred pharmacy, [facility], to elder the Novolog and Levemir. The first pharmacist informed SW that they would have to send for prior auth on these meds and a doctor would have to call insurance to get auth. ANDREW contacted [facility] back to obtain the number for the doctor to call. ANDREW spoke to another sales representative [employer] and they report that Novolog and Levemir do not need a prior auth and she priced the two meds at $0, with the patient's prescription coverage. The sales representative [employer] reports that they would need a script for the insulin and for a glucometer. ANDREW updated the patient. The patient appeared relieved. The patient states that she would be able to afford the glucometer, if there is an [id number] cost for it. ANDREW contacted and updated Magy at Dr. Ulloa's office. ANDREW contacted and updated the patient's DPOA-HC, Rocío. Rocío was agreeable to the plan. SW to continue to follow.
[2020-02-10 16:12] VITALS: BP 157/77; PULSE 96; TEMP 98.4
--- NOTE | 2020-02-10 18:11 | NUR ---
PATIENT HAD AN UNEVENTFUL SHIFT. PATIENT REPORTED SOME MINOR BURNING-NEUROPATHY LIKE PAIN IN THE RIGHT NECK AND SHOULDER AREA AT TIMES. PICC TO E. PATIENT HAS WIDE GAIT AND IS A LITTLE UNSTEADY AT TIMES. PATIENT AMBULATES WITH SBA. PATIENT CAN BE IMPULSIVE. PATIENT EDUCATED ON THE USE OF CALL LIGHTS, BED ALARMS AND SAFETY. PATIENTS LIQUID CONSISTENCY ADVANCED TO THIN LIQUIDS THIS AFTERNOON PER ST. PATIENT TOELRATING WELL. PATIENT CURRENTLY LAYING IN BED ON THE PHONE WITH FAMILY. NO NEEDS AT THIS TIME.
--- NOTE | 2020-02-11 02:29 | NUR ---
NEW MEPILEX TO COOCYX AREA. SEE SHIFT ASSESSMNET FOR DESCRIPTION. CALL LIGHTION REACH. BED ALARM SET.
[2020-02-11 05:38] VITALS: BP 117/69; PULSE 98; TEMP 98.2
[2020-02-11 16:37] VITALS: BP 130/75; PULSE 109; TEMP 97.8
--- NOTE | 2020-02-11 19:14 | NUR ---
RECEIVED CHANGE OF SHIFT REPORT FROM DAY SHIFT NURSE.
--- NOTE | 2020-02-11 19:29 | NUR ---
PATIENT HAD UNEVENTFUL SHIFT. BEDSIDE REPORT GIVEN TO AMANDA RAE. PEG TUBE SITE CLEANED AT SHIFT CHANGE WITH NIGHT NURSE. NEW GAUZE & HYPAFIX DRESSING APPLIED.
--- NOTE | 2020-02-11 20:00 | NUR ---
PATIENT UP IN ROOM PER SELF WITH NO PROBLEMS. DENIES ANY NEEDS OR C/O AT THIS TIME. PLANS FOR DISCHARGE TOMORROW. PICC LINE IN PLACE. PEG IN PLACE/CLAMPED AND NOT IN USE AT THIS TIME.
[2020-02-12 05:43] VITALS: BP 127/71; PULSE 93; TEMP 98.3
--- NOTE | 2020-02-12 06:40 | NUR ---
awake resting in bed, bedside shift report received from AMANDA Coffman
--- NOTE | 2020-02-12 06:44 | NUR ---
CHANGE OF SHIFT REPORT GIVEN TO DAY SHIFT NURSE
--- NOTE | 2020-02-12 07:20 | NUR ---
awake and ready for breakast, pancakes were served and she doesn't like them so scrambled eggs were ordered, takes am meds without difficulty
--- NOTE | 2020-02-12 08:15 | NUR ---
had breakfast and now in bed and appears to be sleeping, eyes closed, resp quiet and easy
--- NOTE | 2020-02-12 09:01 | NUR ---
continues to sleep
[2020-02-12] MEDS ORDERED: NOVOLOG 100U100 U/M1 SQ ×2 (09:20→09:21)
[2020-02-12] MEDS ORDERED: LEVEMIR FLEX100 U/ML SQ (09:21)
[2020-02-12] MEDS ORDERED: KEPPRA 500MG500 MG PO (09:23)
[2020-02-12] MEDS ORDERED: FREESTYLE PREC1 EAC5 MC (09:28)
[2020-02-12] MEDS ORDERED: GLUCOSE TEST ST1 DEV MC (09:29)
--- NOTE | 2020-02-12 10:01 | NUR ---
ANDREW staffed with the patient's RN. A script was written for a glucometer and strips for the patient. The patient is to discharge back home today, 02/11, with outpatient ST at [facility]. ANDREW faxed the patient's discharge orders to [facility]. No additional needs at this time.
--- NOTE | 2020-02-12 10:50 | NUR ---
resting in bed, dietitian was in and visited with patient, now full assessment completed, see interventions for further info
--- NOTE | 2020-02-12 13:00 | NUR ---
discharge instructions given to patient, reviewed insulin high dose sliding scale and reinforced this was in to addition to the 8units 4 times a day, verbalizes understanding, all other instructions were reviewed and she verbalizes understanding of all of t hem,
--- NOTE | 2020-02-12 13:15 | NUR ---
mepiplex to cocyx place, cocyx on the left side remains reddened and has whilte aea over the top,
--- NOTE | 2020-02-12 13:55 | NUR ---
discharged per WC
== END 2020-02-12 13:55 | disposition home or self-care (01) | DRG 947 ==
PROVIDERS: ADMIT Internal Medicine
DX: R53.81 Other malaise (principal); G92 Toxic encephalopathy; E87.2 Acidosis; E46 Unspecified protein-calorie malnutrition; N17.9 Acute kidney failure, unspecified; D53.9 Nutritional anemia, unspecified; G72.9 Myopathy, unspecified; E11.649 Type 2 diabetes mellitus with hypoglycemia without coma; E11.65 Type 2 diabetes mellitus with hyperglycemia; R25.3 Fasciculation; R13.10 Dysphagia, unspecified; I45.81 Long QT syndrome; R74.01 Elevation of levels of liver transaminase levels; E87.6 Hypokalemia; F17.210 Nicotine dependence, cigarettes, uncomplicated; Z79.4 Long term (current) use of insulin; Z79.82 Long term (current) use of aspirin; Z93.1 Gastrostomy status
CPT/HCPCS: 99222-AI; 99232-AI; 99239; J1815

== ENCOUNTER 2020-02-13 19:27 | Emergency (ER) | payer BC ==
[~2020-02-13] VITALS: Ht 172.7 cm; Wt 59.1 kg
[~2020-02-13 19:27] MED LIST changes: +FREESTYLE PREC1 EAC5 MC; +GLUCOSE TEST ST1 DEV MC
[2020-02-13 19:49] LABS: ARTERIAL BLD GAS O2 SATURATION 97.3 % (92-100); ARTERIAL BLD GAS TCO2 CT 2.5; ARTERIAL BLOOD GAS HCO3 2.1 meq/L (22-26)
[2020-02-13 19:50] LABS: ARTERIAL BLOOD GAS PCO2 13.6 mmHg (35-45); ARTERIAL BLOOD GAS PO2 140.5 mmHg (80-100)
[2020-02-13 19:50] LABS: MEAN CELL VOLUME 112 fl (80.0-100.0); MEAN CORPUSCULAR HGB CONC 29 g/dl (33.0-37.0); MEAN PLATELET VOLUME 9.8 fl (7.4-10.4); PLATELET COUNT 774 K/mm3 (130-400); RED BLOOD COUNT 3.05 M/mm3 (4.10-5.30); REDCELL DISTRIBUTION WIDTH-CV 13.4 % (11.5-14.5)
[2020-02-13 19:52] LABS: HEMOGLOBIN 9.7 g/dl (12.5-16.0); MEAN CORPUSCULAR HEMOGLOBIN 32 pg (27.0-31.0)
[2020-02-13 20:08] LABS: COLLECTION METHOD CLEAN CATCH
[2020-02-13 20:24] LABS: MUCOUS Present /lpf; PH 5 (5-8); SQUAMOUS EPITHELIAL None Seen /hpf; URINE APPEARANCE Hazy; URINE BACTERIA None Seen /hpf; URINE BILIRUBIN Negative (NEGATIVE); URINE BLOOD Negative (NEGATIVE); URINE COLOR Straw; URINE GLUCOSE 3+ (NEGATIVE); URINE KETONE 2+ (NEGATIVE); URINE LEUKOCYTE ESTERASE Negative (NEGATIVE); URINE NITRATE Negative (NEGATIVE); URINE PROTEIN(semi-quant) Negative (NEGATIVE); URINE RBC 0-2 /hpf; URINE UROBILINOGEN Negative (NEGATIVE)
[2020-02-13 20:26] LABS: TROPONIN-I < 0.012 ng/mL (0.000-0.035)
[2020-02-13 20:27] LABS: TRICYCLIC ANTIDEPRESS URINE NEGATIVE
[2020-02-13 20:34] LABS: MAGNESIUM 2.7 mg/dL (1.6-2.3)
[2020-02-13 20:39] LABS: ALANINE AMINOTRANSFERASE 33 U/L (4-34); ALKALINE PHOSPHATASE 359 U/L (50-136); AST,SGOT 26 U/L (15-37); BILIRUBIN,TOTAL 0.3 mg/dL (0.0-1.0); BLOOD UREA NITROGEN 49 mg/dL (7-17); CHLORIDE 93 mmol/L (98-107); CREATININE, serum 2.12 (0.52-1.25); LIPASE 136 U/L (23-300); SODIUM 128 mmol/L (137-145); TOTAL PROTEIN 7.3 gm/dL (6.4-8.2)
[2020-02-13 20:40] LABS: BAND 3 % (0-10); HYPOCHROMIA 3+; LYMPHOCYTE 4 % (20.0-51.0); NEUTROPHILS 90 % (42.0-75.2); PLATELET ESTIMATE INCREASED (NORMAL)
[2020-02-13 20:46] LABS: ALCOHOL(ethanol),MEDICAL < 10 mg/dL
[2020-02-13 20:49] LABS: POTASSIUM 7.4 mmol/L (3.4-5.0)
[2020-02-13 20:51] LABS: ACETONE,SERUM MODERATE
[2020-02-13 21:08] LABS: CARBON DIOXIDE < 5 mmol/L (22-30)
[2020-02-13 21:09] LABS: GLUCOSE 1102 mg/dL (74-106)
[2020-02-13 21:40] VITALS: BP 84/46; PULSE 104; TEMP 33.7
== END 2020-02-13 21:40 | disposition short-term general hospital (02) ==
LOC: COL.ER 19:27
PROVIDERS: Emergency Medicine
DX: E11.10 Type 2 diabetes mellitus with ketoacidosis without coma (principal); Z79.4 Long term (current) use of insulin; Z79.82 Long term (current) use of aspirin
CPT/HCPCS: J0610; J1815; J7030